=== PATIENT | male | born 1975 | race Caucasian/White ===

== ENCOUNTER 2017-07-22 17:25 | Outpatient (CLI) | payer BC | END 2017-07-22 17:59 | disposition home or self-care (01) | LOC: SLEEP 17:25 | PROVIDERS: ATTEND Nurse Practitioner Family | DX: G47.33 Obstructive sleep apnea (adult) (pediatric) (principal); R06.83 Snoring ==

== ENCOUNTER 2017-09-04 19:41 | Outpatient (CLI) | payer BC | END 2017-09-05 06:31 | disposition home or self-care (01) | LOC: SLEEP 19:41 | PROVIDERS: ATTEND Nurse Practitioner | DX: G47.33 Obstructive sleep apnea (adult) (pediatric) (principal) | CPT/HCPCS: 95811 ==